=== PATIENT | female | born 1995 | race Caucasian/White ===

== ENCOUNTER → 2017-03-01 | Outpatient (CLI) | payer MEDICAID | DX: Z36 Encounter for antenatal screening of mother (principal); Z3A.11 11 weeks gestation of pregnancy ==

== ENCOUNTER → 2017-04-18 | Outpatient (CLI) | payer MEDICAID ==
--- NOTE | 2017-04-18 16:54 | Diagnostic Imaging Report ---
INDICATION: survey. TECHNIQUE: Multiple real-time grayscale images were obtained over the gravid uterus. COMPARISON: 03/01/2017. FINDINGS: heart rate is 160 beats per minute. The placenta is anterior. No placenta previa. There is adequate amniotic fluid seen. The bladder, two umbilical arteries, cord insertion, the lateral ventricles, and the stomach appear unremarkable. The four-chamber view appears unremarkable. The spine and the kidneys are not well seen due to position. Biometrical measurements are as follows: Biparietal 4.04 cm, age 18 weeks 2 days. Head circumference 14.60 cm, age 17 weeks 6 days. Abdominal circumference 12.67 cm, age 18 weeks 2 days. Femur length 2.69 cm, age 18 weeks 2 days. Sonographic estimate age: 18 weeks 2 days. Sonographic estimated date of delivery: 09-17-17. Estimated Weight: 228 gm (+/- 33 gm). LMP percentile: 48%. heart rate: 160 beats per minute. number: 1 of 1. IMPRESSION: The spine and kidneys are not well seen. Reevaluation of anatomy to better assess is suggested within two weeks. Dictated by: Dictated on workstation # [id number]
== END ==
LOC: RAD 12:21
PROVIDERS: ATTEND Family Medicine
DX: Z36 Encounter for antenatal screening of mother (principal); Z3A.18 18 weeks gestation of pregnancy
CPT/HCPCS: 76805

== ENCOUNTER → 2017-04-26 | Outpatient (CLI) | payer MEDICAID ==
--- NOTE | 2017-04-26 19:32 | Diagnostic Imaging Report ---
INDICATION: Follow-up exam. TECHNIQUE: Multiple real-time grayscale images were obtained over the gravid uterus. COMPARISON: This study was compared to the prior exams of 03/01/2017 and 04/18/2017. FINDINGS: The previous exam of 04/18/2017 noted a single live fetus. There were no abnormalities identified, but the spine and kidneys were not well imaged. On this exam, the fetus is again identified. The fetus is cephalic in presentation. heart motion is noted and a rate of 135 BPM is recorded. The spine and kidneys are imaged on this exam and appear to be within normal limits. The amniotic fluid volume is within normal limits. The placenta is anterior and there is no previa. growth parameters are not obtained for this study. IMPRESSION: 1. There is a single live fetus in cephalic presentation of approximately 19 weeks 2 days gestation +/- 1 week. The EDC is September 18, 2016. 2. The spine and kidneys are imaged and are within normal limits. 3. The growth parameters are not obtained for this study. Dictated by: Dictated on workstation # [id number]
== END ==
LOC: RAD 12:50
PROVIDERS: ATTEND Family Medicine
DX: Z36 Encounter for antenatal screening of mother (principal); Z3A.19 19 weeks gestation of pregnancy
CPT/HCPCS: 76816

== ENCOUNTER → 2017-07-23 | Outpatient (CLI) | payer MEDICAID ==
[~2017-07-23] MED LIST: ACET325T38 PO; FOLI1TAB24 PO
--- NOTE | 2017-07-23 16:38 | Diagnostic Imaging Report ---
INDICATION: Size and date discrepancies. Assess growth and INEZ. TECHNIQUE: Multiple real-time grayscale images were obtained over the gravid uterus. COMPARISON: 04/26/2017 FINDINGS: Single live IUP. Biometrical measurements are as follows: Biparietal 7.7 cm, age 30 weeks 6 days. Head circumference 28.6 cm, age 31 weeks 3 days. Abdominal circumference 28.1 cm, age 32 weeks 3 days. Femur length 6.3 cm, age 32 weeks 4 days. Sonographic estimate age: 31 weeks 6 days. Sonographic estimated date of delivery: 09/18/16. Estimated Weight: 1902 gm (+/- 278 gm). LMP percentile: 47%. heart rate: 136 beats per minute. number: 1 of 1. The INEZ is normal at 11.3 cm. IMPRESSION: 1. Appropriate interval growth of single live intrauterine . 2. See above for biometric data. Dictated by: Dictated on workstation # [id number]
== END ==
LOC: RAD 10:25
PROVIDERS: ATTEND Family Medicine
DX: Z36.87 Encounter for antenatal screening for uncertain dates (principal); Z3A.31 31 weeks gestation of pregnancy
CPT/HCPCS: 76816

== ENCOUNTER 2017-08-02 20:19 | Outpatient (CLI) | payer MEDICAID ==
[~2017-08-02] VITALS: Ht 171.4 cm; Wt 94.5 kg
[2017-08-02 20:27] VITALS: BP 128/73
[2017-08-02 20:41] LABS: BILIRUBIN,URINE NEGATIVE (NEGATIVE); KETONES,URINE NEGATIVE (NEGATIVE); LEUKOCYTE ESTERASE ,URINE 1+ (NEGATIVE); NITRITE,URINE NEGATIVE (NEGATIVE); PH,URINE 7 (5-9); PROTEIN,URINE 2+ (NEGATIVE); UROBILINOGEN,URINE NORMAL (NORMAL)
[2017-08-02 20:49] LABS: WBC,URINE 0-2 /HPF
[2017-08-02 21:26] LABS: BASOPHILS % (AUTO) 0 % (0-10); EOSINOPHILS % (AUTO) 0 % (0-10); LYMPHOCYTES # (AUTO) 1.1 X 10^3 (1.0-4.0); LYMPHOCYTES % (AUTO) 8 % (12-44); MEAN CORPUSCULAR HEMOGLOBIN 26 PG (25-34); MEAN CORPUSCULAR HGB CONC 33 G/DL (32-36); MEAN CORPUSCULAR VOLUME 78 FL (80-99); MEAN PLATELET VOLUME 9.5 FL (7.4-10.4); MONOCYTES # (AUTO) 1.1 X 10^3 (0.0-1.0); MONOCYTES % (AUTO) 8 % (0-12); NEUTROPHILS # (AUTO) 11.4 X 10^3 (1.8-7.8); NEUTROPHILS % (AUTO) 83 % (42-75); PLATELET COUNT 255 10^3/uL (130-400); RED BLOOD COUNT 4.08 10^6/uL (4.35-5.85); RED CELL DISTRIBUTION WIDTH 13.8 % (10.0-14.5); WHITE BLOOD COUNT 13.6 10^3/uL (4.3-11.0)
--- NOTE | 2017-08-07 13:04 | Physician Query-Final Dx ---
MEGAN NICHOLE 08/07/17 1304: Clinic Account Progress/Dx Physician Query: Please give diagnosis Date of Service Aug 02, 2017 at 20:19 MOJGAN DAMIAN MD 08/10/17 0722: Clinic Account Progress/Dx DIAGNOSIS: Diagnosis 1. IUP at 33 weeks--non labor 2. Membranes intact MEGAN NICHOLE Aug 07, 2017 13:04 MOJGAN DAMIAN MD Aug 10, 2017 07:22
== END 2017-08-02 21:57 | disposition home or self-care (01) ==
LOC: LDRP 20:19 → WSo 20:19
PROVIDERS: ATTEND Family Medicine
DX: Z34.93 Encounter for supervision of normal pregnancy, unspecified, third trimester (principal); Z3A.33 33 weeks gestation of pregnancy
CPT/HCPCS: 36415; 81000; 85025; 87088; 99213

== ENCOUNTER 2017-09-12 19:52 | Inpatient (IN) | payer MEDICAID ==
[~2017-09-12] VITALS: Ht 171.4 cm; Wt 101.6 kg
--- OUTSIDE RECORDS SUMMARY | 2017-09-12 19:57 | XMS REPORT ---
Author Author MARIA DOLORES BENAVIDEZ [facility] Address [address] [place] [address] Care Team Providers Care Clinical Quality Assurance Specialist Name Role Phone MARIA DOLORES BENAVIDEZ Unavailable PROBLEMS Type Condition ICD9-CM Code QYL00-ZW Code Onset Dates Condition Status SNOMED Code Problem Rh negative status during , second trimester, single gestation O09.892 Active 796515421 Problem Chlamydial infection A74.9 Active 679486509 Problem Rh negative state in antepartum period, first trimester O09.891 Inactive 506190135 Problem Gonorrhea affecting in second trimester O98.212 Active 04815879 Problem Encounter for supervision of normal first in second trimester Z34.02 Active 65663776 ALLERGIES No Information SOCIAL HISTORY Never Assessed PLAN OF CARE VITAL SIGNS MEDICATIONS Unknown Medications RESULTS No Results PROCEDURES No Known procedures IMMUNIZATIONS No Known Immunizations MEDICAL (GENERAL) HISTORY Type Description Date Medical History Bi-polar
--- OUTSIDE RECORDS SUMMARY | 2017-09-12 19:57 | XMS REPORT ---
Author Author SANGEETA LEIVA [facility] Address [address] [place] [address] Care Team Providers Care Finance Professor Name Role Phone SANGEETA LEIVA Unavailable PROBLEMS Type Condition ICD9-CM Code JRH79-AL Code Onset Dates Condition Status SNOMED Code Problem Rh negative status during , second trimester, single gestation O09.892 Active 089935531 Problem Chlamydial infection A74.9 Active 085894277 Problem Rh negative state in antepartum period, first trimester O09.891 Inactive 802490915 Problem Gonorrhea affecting in second trimester O98.212 Active 95189355 Problem Encounter for supervision of normal first in second trimester Z34.02 Active 25639003 ALLERGIES Substance Reaction Event Type Date Status Penicillin 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, Active gelatin anaphylaxis Non Drug Allergy January, Active SOCIAL HISTORY Never Assessed PLAN OF CARE Activity Details Follow Up 3 Weeks Reason:OBGYN intake VITAL SIGNS Height 67.5 in 2017-02-01 Weight 191.0 lbs 2017-02-01 Temperature 98.3 degrees Fahrenheit 2017-02-01 Heart Rate 72 bpm 2017-02-01 Respiratory Rate 18 2017-02-01 BMI 29.47 kg/m2 2017-02-01 Blood pressure systolic 110 mmHg 2017-02-01 Blood pressure diastolic 68 mmHg 2017-02-01 MEDICATIONS Unknown Medications RESULTS No Results PROCEDURES No Known procedures IMMUNIZATIONS No Known Immunizations MEDICAL (GENERAL) HISTORY Type Description Date Medical History Bi-polar
--- OUTSIDE RECORDS SUMMARY | 2017-09-12 19:57 | XMS REPORT ---
Author Author [facility]IVA [facility] Address [address] [place] [address] Care Team Providers Care Printed Circuit Board Pcb Designer Name Role Phone SANGEETA LEIVA Unavailable PROBLEMS Type Condition ICD9-CM Code BRZ49-UT Code Onset Dates Condition Status SNOMED Code Problem Rh negative status during , second trimester, single gestation O09.892 Active 825246207 Problem Chlamydial infection A74.9 Active 763907925 Problem Rh negative state in antepartum period, first trimester O09.891 Inactive 020670222 Problem Gonorrhea affecting in second trimester O98.212 Active 99787656 Problem Encounter for supervision of normal first in second trimester Z34.02 Active 66448223 ALLERGIES No Information SOCIAL HISTORY Never Assessed PLAN OF CARE VITAL SIGNS MEDICATIONS Unknown Medications RESULTS No Results PROCEDURES No Known procedures IMMUNIZATIONS No Known Immunizations MEDICAL (GENERAL) HISTORY Type Description Date Medical History Bi-polar
[2017-09-12] MEDS ORDERED: MINERAL OIL CONCENTRATE 99.9% 15 ML UDC TOP PRN (20:30)
[2017-09-12] MEDS ORDERED: LACTATED RINGERS 1,000 ML IV SCH (20:31)
[2017-09-12] MEDS ORDERED: BUTORPHANOL INJ 2 MG/ML (STADOL) VIAL IV PRN (20:45)
[2017-09-12] MEDS ORDERED: ZOLPIDEM 5 MG (AMBIEN) TAB PO PRN (20:45)
[2017-09-12 21:50] LABS: BASOPHILS % (AUTO) 0 % (0-10); EOSINOPHILS # (AUTO) 0.1 10^3/uL (0.0-0.3); EOSINOPHILS % (AUTO) 1 % (0-10); HEMATOCRIT 35 % (35-52); HEMOGLOBIN 11.5 G/DL (11.5-16.0); LYMPHOCYTES % (AUTO) 17 % (12-44); MEAN CORPUSCULAR HEMOGLOBIN 25 PG (25-34); MEAN CORPUSCULAR HGB CONC 33 G/DL (32-36); MEAN CORPUSCULAR VOLUME 75 FL (80-99); MEAN PLATELET VOLUME 11.1 FL (7.4-10.4); MONOCYTES # (AUTO) 0.9 X 10^3 (0.0-1.0); MONOCYTES % (AUTO) 7 % (0-12); NEUTROPHILS # (AUTO) 9.1 X 10^3 (1.8-7.8); NEUTROPHILS % (AUTO) 75 % (42-75); PLATELET COUNT 257 10^3/uL (130-400); RED BLOOD COUNT 4.65 10^6/uL (4.35-5.85)
[2017-09-12] MEDS: MISOPROSTOL 100 MCG (CYTOTEC) TAB PV PRN (21:50)
[2017-09-12 21:58] VITALS: BP 148/84
[2017-09-12] MEDS ORDERED: CATHETER FLUSH 10 ML SYR IV SCH (22:00)
[2017-09-12] MEDS: D5 LR IV SOLUTION 1,000 ML IV SCH (22:09)
[2017-09-12 22:30] VITALS: BP 137/70
[2017-09-12] MEDS: CLINDAMYCIN INJECTION 900 MG in NS (IVPB) 50 ML IV SCH (23:00)
[2017-09-12 23:10] VITALS: BP 143/82
[2017-09-13] VITALS (47 sets, daily range): BP systolic 115–156; BP diastolic 60–90
[2017-09-13] MEDS: MISOPROSTOL 100 MCG (CYTOTEC) TAB PV PRN ×2 (01:58→05:58)
[2017-09-13] MEDS: CLINDAMYCIN INJECTION 900 MG in NS (IVPB) 50 ML IV SCH ×2 (05:57→13:58)
[2017-09-13] MEDS: D5 LR IV SOLUTION 1,000 ML IV SCH (07:00)
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
[2017-09-13] MEDS ORDERED: SUFENTA 0.6MCG/ML BUPIVA 0.125 100 ML ONE ×2 (09:20→14:17)
[2017-09-13] MEDS ORDERED: fentaNYL INJECTION 100 MCG/2 ML AMP ONE (10:13)
[2017-09-13] MEDS ORDERED: BUPIVACAINE 0.25% 30 ML (SENSORCAINE) VIAL ONE (10:13)
[2017-09-13] MEDS ORDERED: LIDOCAINE PF 2% 5 ML (XYLOCAINE) VIAL ONE (10:13)
[2017-09-13] MEDS ORDERED: LACTATED RINGERS 1,000 ML IV SCH (10:43)
[2017-09-13] MEDS ORDERED: NALOXONE 0.4 MG/ML 1 ML (NARCAN) VIAL IV PRN (10:45)
[2017-09-13] MEDS ORDERED: ONDANSETRON 4 MG/2 ML (SDV) Z0FRAN IV PRN (10:45)
[2017-09-13] MEDS ORDERED: diphenhydrAMINE 50 MG/ML INJ (BENADRYL) IV PRN (10:45)
[2017-09-13] MEDS ORDERED: EPIDURAL (SUFENTA 0.6MCG/ML BUPIVA 0.125%) 100 ML BAG EPI PRN (10:45)
[2017-09-13] MEDS ORDERED: OXYTOCIN/NORMAL SALINE 500 ML IV SCH (10:51)
[2017-09-13] MEDS ORDERED: NS IV 500 ML 500 ML IV ONE (11:30)
--- NOTE | 2017-09-13 16:42 | OB Labor & Delivery Record ---
L&D History Date of Service Date of Service: Sep 13, 2017 History Expected Date of Delivery: Sep 17, 2017 Gestational Age in Weeks: 39 Hx : 1 Hx Para: 0 Complications Events: Routine care Operative Indications (Cesarea: N/A-Vaginal Delivery Intrapartal Events: None L&D Stage1 Stage One Onset of Labor - Date: Sep 12, 2017 Onset of Labor - Time: 20:30 Duration - Stage I: 19 hr 30 min Monitors and Tracing Monitor Mode: External Heart Rate: 130 Monitor Accelerations: Non-Uniform Monitor Decelerations: Variable Station: +1 Care Home Variability: Average (6-10) Presentation: Vertex Vital Signs VS - Last 72 Hours, by Label 09/12/17 09/12/17 09/12/17 09/13/17 21:58 22:30 23:10 02:10 Temp 97.8 98.2 98.0 98.0 Pulse 72 73 71 92 Resp 16 18 18 19 B/P (MAP) 148/84 (105) 137/70 (92) 143/82 (102) 133/87 (102) Pulse Ox 100 97 99 O2 Delivery Room Air Room Air Room Air Room Air 09/13/17 09/13/17 09/13/17 09/13/17 06:17 08:00 08:23 09:00 Temp 98.0 97.4 Pulse 59 90 68 Resp 16 20 20 B/P (MAP) 138/84 (102) 131/83 (99) 134/72 (92) 09/13/17 09/13/17 09/13/17 09/13/17 09:30 10:00 10:20 10:23 Pulse 69 77 88 87 Resp 20 20 20 20 B/P (MAP) 140/89 (106) 156/90 (112) 133/79 (97) 134/78 (96) Pulse Ox 100 100 O2 Delivery Room Air Room Air 09/13/17 09/13/17 09/13/17 09/13/17 10:26 10:29 10:30 10:31 Pulse 84 101 92 Resp 20 20 20 B/P (MAP) 122/74 (90) 125/73 (90) 145/85 (105) Pulse Ox 100 100 98 O2 Delivery Room Air Room Air Room Air 09/13/17 09/13/17 09/13/1718 10:50 10:55 11:00 11:05 Pulse 73 78 77 72 Resp 16 B/P (MAP) 125/61 (82) 130/77 (94) 133/72 (92) 131/72 (91) Pulse Ox 99 100 O2 Delivery Room Air 09/13/17 09/13/17 09/13/17 09/13/17 11:10 11:15 11:20 11:30 Pulse 64 68 64 66 Resp 16 16 B/P (MAP) 128/72 (90) 130/78 (95) 128/77 (94) 132/80 (97) Pulse Ox 99 99 98 O2 Delivery Room Air Room Air 09/13/17 09/13/17 09/13/17 09/13/17 11:45 12:00 12:00 12:15 Temp 98.3 Pulse 61 71 59 Resp 16 16 16 B/P (MAP) 134/79 (97) 127/80 (96) 120/65 (83) Pulse Ox 99 100 99 99 O2 Delivery Room Air Room Air Room Air 09/13/17 09/13/17 09/13/17 09/13/17 12:30 12:45 13:00 13:15 Pulse 58 56 56 66 Resp 16 16 16 16 B/P (MAP) 116/60 (78) 115/63 (80) 115/63 (80) 130/78 (95) Pulse Ox 99 100 100 100 O2 Delivery Room Air Room Air Room Air Room Air 09/13/17 09/13/17 09/13/17 09/13/17 13:30 13:45 14:00 14:15 Temp 98.2 Pulse 66 68 72 75 Resp 16 16 16 16 B/P (MAP) 137/80 (99) 126/79 (95) 126/79 (95) 128/79 (95) Pulse Ox 100 100 100 100 O2 Delivery Room Air Room Air Room Air Room Air 09/13/17 09/13/17 09/13/17 09/13/17 14:30 14:45 15:00 15:15 Pulse 72 108 85 81 Resp 16 16 16 18 B/P (MAP) 128/74 (92) 122/78 (93) 145/77 (99) 140/84 (102) Pulse Ox 100 100 100 100 O2 Delivery Room Air Room Air Room Air Room Air 09/13/17 09/13/17 15:30 15:45 Pulse 78 72 Resp 18 18 B/P (MAP) 155/81 (105) 150/78 (102) Pulse Ox 100 100 O2 Delivery Room Air Room Air Signs of Distress by FHT Signs of Distress none Fundal Ht/Cervical Dilatation Cervical Effacement Percentage: 70 Rupture of Membranes Spontaneous Ruture of Membrane: No Amniotic Membrane Rupture Time: 0645 Amniotic Membrane Fluid Desc.: Clear Vaginal Bleeding Description: Normal Show Induction/Anesthesia Epidural Cath Placement - Time: 1029 Medications Clindamycin, stadol x1 L&D Stage2 Stage Two Stage II Date: Sep 13, 2017 Stage II Time: 16:01 Stage II Duration: 1 hour 1 min Monitors and Tracing Monitor Mode: External Heart Rate: 130 Monitor Accelerations: Non-Uniform Monitor Decelerations: Variable Beef Pusher Variability: Average (6-10) Position: Right Occiput Anterior Presentation: Vertex Signs of Distress by FHT Signs of Distress none Cord Descript/Complications Cord Vessel Description: 3 Vessels Complications none Delivery Type Infant Delivery Method: Spontaneous Vaginal Anterior Shoulder: Right Episiotomy/Perineal Laceration Laceraction(s)/Extensions: Yes Episiotomy Description: Perineal Extension/lac, 1st degree Sutures Used: Vicryl Degree (describe repair) first degree repaired in normal fashion and without complication Condition of Delivery Delivery Date & Time: 09/13/17 1601 1 minute Comment: 8 5 minute Comment: 9 Condition of Infant Condition of : Living Exam: No Observed Abnormalities Resuscitation Resuscitation: N/A - Spontaneous Resp L&D Stage3 Stage Three Stage III Date: Sep 13, 2017 Stage III Time: 16:20 Stage III Duration: 19 min Pictocin Pitocin Administration mu/min: 2 Pitocin ml/hr: 2 Placenta Delivery Placenta Delivery: Spontaneous Delivery Summary Summary Total Labor Time 20 hr 50 min Estimated blood loss (mL): 250 Attending at delivery: Sami Dumas DO Condition of Delivery Examined: Cervix Examined, Uterus Explored Post Hemorrhage: No Condition of Mother stable Condition of Infant (s) CITLALY Delgado DO Sep 13, 2017 16:42
--- NOTE | 2017-09-13 17:06 | OB Labor & Delivery Record ---
Vag Delivery Note Vag Delivery Note Date of Delivery: 09/13/17 Preoperative Diagnosis: Sabrina Riggins is a 22 /Para 1 / 0, Gestational Age 39 3/7 wks with complicated by gonorrhea and chlamydia in the second trimester. Postoperative Diagnosis: Same Surgeon: CITLALY WOODS Anesthesia: Epidural Delivery Type: Spontaneous Vaginal Delivery Findings: Viable female , apgars 8,9 and weight 7 lb 8 oz Lacerations: first degree perineal Intact placenta with 3 vessel cord. No nuchal cord, body cord or shoulder dystocia Estimated Blood Loss: 250 ml Complications: None Condition: Stable Description of Procedure: The patient is a who presented for scheduled cytotec induction last night secondary to maternal request and term IUP. She was admitted and informed consent was obtained. Her labor course was remarkable for AROM with moderate clear fluid at 0645, epidural placement around ~1000. She progressed to complete dilatation and began to push. She was then set up for delivery. The infant's head was delivered atraumatically in the BI position. The shoulders and remainder of the infant's body were then delivered without difficulty. Upon delivery, the cord was allowed to stop pulsating for 90 seconds while infant was on maternal abdomen, then doubly clamped and cut and the was handed off to the pediatric staff. An intact placenta with 3-vessel cord delivered via Nesha and there was found to be minimal bleeding.~ Vigorous fundal massage was performed and the fundus was found to be firm. IV oxytocin was given. Examination of the vagina and perineum revealed a First degree perineal laceration repaired in the usual fashion with 3-0 vicryl suture. Following the repair, sponge, instrument and needle counts were correct. Mom and baby were both in stable condition in the labor suite. Vitals - Labs Vital Signs - I&O Vital Signs Date Time Temp Pulse Resp B/P (MAP) Pulse Ox O2 Delivery O2 Flow Rate FiO2 09/13/17 15:45 72 18 150/78 (102) 100 Room Air 09/13/17 15:30 78 18 155/81 (105) 100 Room Air 09/13/17 15:15 81 18 140/84 (102) 100 Room Air 09/13/17 15:00 85 16 145/77 (99) 100 Room Air 09/13/17 14:45 108 16 122/78 (93) 100 Room Air 09/13/17 14:30 72 16 128/74 (92) 100 Room Air 09/13/17 14:15 98.2 75 16 128/79 (95) 100 Room Air 09/13/17 14:00 72 16 126/79 (95) 100 Room Air 09/13/17 13:45 68 16 126/79 (95) 100 Room Air 09/13/17 13:30 66 16 137/80 (99) 100 Room Air 09/13/17 13:15 66 16 130/78 (95) 100 Room Air 09/13/17 13:00 56 16 115/63 (80) 100 Room Air 09/13/17 12:45 56 16 115/63 (80) 100 Room Air 09/13/17 12:30 58 16 116/60 (78) 99 Room Air 09/13/17 12:15 59 16 120/65 (83) 99 Room Air 09/13/17 12:00 99 Room Air 09/13/17 12:00 71 16 127/80 (96) 100 09/13/17 11:45 98.3 61 16 134/79 (97) 99 Room Air 09/13/17 11:30 66 16 132/80 (97) 98 Room Air 09/13/17 11:20 64 128/77 (94) 09/13/17 11:15 68 16 130/78 (95) 99 Room Air 09/13/17 11:10 64 128/72 (90) 99 09/13/17 11:05 72 131/72 (91) 100 09/13/17 11:00 77 16 133/72 (92) 99 Room Air 09/13/17 10:55 78 130/77 (94) 09/13/17 10:50 73 125/61 (82) 09/13/17 10:31 92 20 145/85 (105) 98 Room Air 09/13/17 10:30 09/13/17 10:29 101 20 125/73 (90) 100 Room Air 09/13/17 10:26 84 20 122/74 (90) 100 Room Air 09/13/17 10:23 87 20 134/78 (96) 100 Room Air 09/13/17 10:20 88 20 133/79 (97) 100 Room Air 09/13/17 10:00 77 20 156/90 (112) 09/13/17 09:30 69 20 140/89 (106) 09/13/17 09:00 68 20 134/72 (92) 09/13/17 08:23 90 20 131/83 (99) 09/13/17 08:00 97.4 09/13/17 06:17 98.0 59 16 138/84 (102) 09/13/17 02:10 98.0 92 19 133/87 (102) 99 Room Air 09/12/17 23:10 98.0 71 18 143/82 (102) Room Air 09/12/17 22:30 98.2 73 18 137/70 (92) 97 Room Air 09/12/17 21:58 97.8 72 16 148/84 (105) 100 Room Air Labs Laboratory Tests 09/12/17 21:42: White Blood Count 12.0H, Red Blood Count 4.65, Hemoglobin 11.5, Hematocrit 35, Mean Corpuscular Volume 75L, Mean Corpuscular Hemoglobin 25, Mean Corpuscular Hemoglobin Concent 33, Red Cell Distribution Width 16.0H, Platelet Count 257, Mean Platelet Volume 11.1H, Neutrophils (%) (Auto) 75, Lymphocytes (%) (Auto) 17 , Monocytes (%) (Auto) 7, Eosinophils (%) (Auto) 1, Basophils (%) (Auto) 0, Neutrophils # (Auto) 9.1H, Lymphocytes # (Auto) 2.0, Monocytes # (Auto) 0.9, Eosinophils # (Auto) 0.1, Basophils # (Auto) 0.0 CITLALY WOODS DO Sep 13, 2017 17:06
[2017-09-13] MEDS ORDERED: BENZOCAINE/MENTHOL (DERMOPLAST) 56 ML CAN TP ONE (21:10)
[2017-09-13] MEDS ORDERED: WITCH HAZEL(TUCKS) 40 EA JAR ONE (21:10)
[2017-09-13] MEDS ORDERED: TETANUS,DIPTH,PERTUSS P/F (BOOSTRIX) 0.5 ML VIAL IM ONE (22:00)
[2017-09-13] MEDS ORDERED: CATHETER FLUSH 10 ML SYR IV SCH (22:00)
[2017-09-13] MEDS ORDERED: APAP 300 MG/CODEINE 30 MG (TYLENOL #3) TAB PO PRN (22:00)
[2017-09-13] MEDS ORDERED: BENZOCAINE/MENTHOL (DERMOPLAST) 56 ML CAN TP PRN (22:00)
[2017-09-13] MEDS ORDERED: WITCH HAZEL(TUCKS) 40 EA JAR TOP PRN (22:00)
[2017-09-14 00:30] VITALS: BP 129/74
[2017-09-14 05:48] LABS: BASOPHILS % (AUTO) 0 % (0-10); EOSINOPHILS # (AUTO) 0.1 10^3/uL (0.0-0.3); EOSINOPHILS % (AUTO) 0 % (0-10); HEMATOCRIT 26 % (35-52); HEMOGLOBIN 9.5 G/DL (11.5-16.0); LYMPHOCYTES # (AUTO) 2.1 X 10^3 (1.0-4.0); LYMPHOCYTES % (AUTO) 17 % (12-44); MEAN CORPUSCULAR HEMOGLOBIN 25 PG (25-34); MEAN CORPUSCULAR HGB CONC 37 G/DL (32-36); MEAN CORPUSCULAR VOLUME 67 FL (80-99); MEAN PLATELET VOLUME 9.9 FL (7.4-10.4); MONOCYTES % (AUTO) 8 % (0-12); NEUTROPHILS # (AUTO) 9.5 X 10^3 (1.8-7.8); NEUTROPHILS % (AUTO) 75 % (42-75); PLATELET COUNT 228 10^3/uL (130-400); RED BLOOD COUNT 3.84 10^6/uL (4.35-5.85); RED CELL DISTRIBUTION WIDTH 15.7 % (10.0-14.5); WHITE BLOOD COUNT 12.6 10^3/uL (4.3-11.0)
[2017-09-14 08:59] VITALS: BP 126/78
--- NOTE | 2017-09-14 10:36 | Anesthesia-Regional Post-Op ---
Regional Patient Condition Mental Status: Alert, Oriented x3 Circulation: Same as Pre-Op Headache: Absent Sensation: Full Recovery Motor Block: Absent Post Op Complications Complications None Follow Up Care/Instructions Patient Instructions None needed. Anesthesia/Patient Condition Patient is doing well, no complaints, stable vital signs, no apparent adverse anesthesia problems. No complications reported per nursing. TOÑO RED CRNA Sep 14, 2017 10:36
[2017-09-14] MEDS ORDERED: FERR-74 PO (11:47)
[2017-09-14] MEDS ORDERED: IBUP-1773 PO (11:47)
[2017-09-14] MEDS ORDERED: DOCU100C37 PO (11:47)
--- NOTE | 2017-09-14 11:49 | Discharge Summary ---
Diagnosis/Chief Complaint Date of Admission Sep 12, 2017 at 7:53 pm Date of Discharge Sep 14, 2017 Admission Diagnosis Admission Diagnosis Term intrauterine at 39 weeks gestation Elective induction of labor A negative blood type Rubella immune Discharge Diagnosis s/p spontaneous vaginal delivery with first degree perineal laceration repair asymptomatic anemia- started iron daily x 30 days A negative blood type- O+, rhogam given Rubella immune Chief Complaint/HPI Chief Complaint/HPI 22 yo G1 now P1 presented at 39 weeks for elective IOL. Discharge Summary-Simple/Stand Procedures Spontaneous vaginal delivery with first degree perineal laceration repair Discharge Physical Examination Allergies: Coded Allergies: Penicillins (Verified Allergy, Unknown, 08/02/17) gelatin (Verified Allergy, Unknown, 07/17/17) Vitals & I&Os Vital Sign - Last 12Hours Date Time Temp Pulse Resp B/P (MAP) Pulse Ox O2 Delivery O2 Flow Rate FiO2 09/14/17 00:30 99.4 83 18 129/74 (92) 99 Room Air General Appearance: Alert, No Acute Distress Respiratory: Clear to Auscultation, Normal Air Movement Cardiovascular: Regular Rate, No Murmurs Neuro: Normal Gait Psych/Mental Status: Mental Status NL Hospital Course See final discharge diagnosis. Labs Laboratory Tests Test 09/12/17 21:42 09/14/17 05:20 Range/Units White Blood Count 12.0 H 12.6 H 4.3-11.0 10^3/uL Red Blood Count 4.65 3.84 L 4.35-5.85 10^6/uL Hemoglobin 11.5 9.5 L 11.5-16.0 G/DL Hematocrit 35 26 L 35-52 % Mean Corpuscular Volume 75 L 67 L 80-99 FL Mean Corpuscular Hemoglobin 25 25 25-34 PG Mean Corpuscular Hemoglobin Concent 33 37 H 32-36 G/DL Red Cell Distribution Width 16.0 H 15.7 H 10.0-14.5 % Platelet Count 257 228 130-400 10^3/uL Mean Platelet Volume 11.1 H 9.9 7.4-10.4 FL Neutrophils (%) (Auto) 75 75 42-75 % Lymphocytes (%) (Auto) 17 17 12-44 % Monocytes (%) (Auto) 7 8 0-12 % Eosinophils (%) (Auto) 1 0 0-10 % Basophils (%) (Auto) 0 0 0-10 % Neutrophils # (Auto) 9.1 H 9.5 H 1.8-7.8 X 10^3 Lymphocytes # (Auto) 2.0 2.1 1.0-4.0 X 10^3 Monocytes # (Auto) 0.9 1.0 0.0-1.0 X 10^3 Eosinophils # (Auto) 0.1 0.1 0.0-0.3 10^3/uL Basophils # (Auto) 0.0 0.0 0.0-0.1 10^3/uL Discharge Instructions to patient/family Please see electronic discharge instructions given to patient. Discharge Medications Reviewed and agree with Discharge Medication list on patient's Discharge Instruction sheet Clinical Quality Measures DVT/VTE Risk/Contraindication: Risk Factor Score Per Nursin RFS Level Per Nursing on Admit: 2=Moderate Copy Copies To 1: CITLALY WOODS BETHANY N MD Sep 14, 2017 11:49
--- NOTE | 2017-09-14 11:49 | Discharge Instructions ---
Discharge Inst-[facility] Depart Medications New, Converted or Re-Newed RX: Transmitted to Pharmacy New Medications: Docusate Sodium (Docusate Sodium) 100 Mg Capsule 100 MG PO BID PRN for CONSTIPATION-1ST LINE, #60 CAP 0 Refills Ferrous Sulfate (Ferrous Sulfate) 325 Mg Tablet 325 MG PO DAILY@0700, #30 TAB 0 Refills Ibuprofen (Ibuprofen) 600 Mg Tablet 600 MG PO Q6H PRN for PAIN-MODERATE, #60 TAB 0 Refills Continued Medications: Acetaminophen (Tylenol) 325 Mg Tablet 1000 MG PO PRN, TAB Folic Acid (Folic Acid) 1 Mg Tablet 1 MG PO DAILY, TAB Follow Up/Instructions Goal/Follow Up: Follow up with Dr. Woods in [place] in 6 weeks for visit. Activity Activity: Activity as Tolerated (avoid strenuous activity x 2 weeks) Driving Instructions: You May Drive NO SMOKING: NO SMOKING Nothing Inside Vagina: No Douching, No [place], No Tampons Diet Discharge Diet: Regular Diet Symptoms to Report to : Swelling Increased, Pain Increased, Fever Over 101 Degrees F, Pain/Pressure in Chest, Heart Beat Irreg/Pounding, Vaginal Bleeding Increase, Cramps in Feet or Legs, Vaginal Discharge Foul, Shortness of Breath For Any Problems or Questions: Contact Your Physician Copies To 1: CITLALY WOODS BETHANY N MD Sep 14, 2017 11:48 am
[2017-09-14 16:30] VITALS: BP 146/92
[2017-09-14 20:00] VITALS: BP 141/92
[2017-09-14] MEDS: DOCUSATE SODIUM 100 MG (COLACE) CAP PO SCH (21:16)
[2017-09-14] MEDS: IBUPROFEN 600 MG (MOTRIN) TAB PO SCH (22:56)
[2017-09-15 02:15] VITALS: BP 119/69
[2017-09-15] MEDS: IBUPROFEN 600 MG (MOTRIN) TAB PO SCH ×2 (04:00→10:00)
[2017-09-15] MEDS ORDERED: FERROUS SULF 325 MG (IRON) TAB PO SCH (07:00)
[2017-09-15 08:40] VITALS: BP 135/84
[2017-09-15] MEDS: DOCUSATE SODIUM 100 MG (COLACE) CAP PO SCH (09:00)
[2017-09-15 14:00] VITALS: BP 134/77
[2017-09-15 15:30] VITALS: BP 134/77
== END 2017-09-15 15:30 | disposition home or self-care (01) | DRG 775 ==
LOC: WSo 19:52 → LDRP 19:53
PROVIDERS: ADMIT Family Medicine; ATTEND Family Medicine
PROC: 0HQ9XZZ Repair Perineum Skin, External Approach (ICD-10-PCS; principal; 2017-09-13)
PROC: 10E0XZZ Delivery of Products of Conception, External Approach (ICD-10-PCS; 2017-09-13)
PROC: 3E0P7GC Introduction of Other Therapeutic Substance into Female Reproductive, Via Natural or Artificial Opening (ICD-10-PCS; 2017-09-13)
DX: O99.824 Streptococcus B carrier state complicating childbirth (principal); O90.81 Anemia of the puerperium; Z3A.39 39 weeks gestation of pregnancy; Z37.0 Single live birth
CPT/HCPCS: 36415; 83033; 85025; 86850; 86900; 86901